=== PATIENT | female | born 1995 | race African-American/Black ===

== ENCOUNTER 2017-05-15 21:53 | Emergency (ER) | payer SELFPAY ==
[~2017-05-15] VITALS: Ht 160 cm; Wt 87.0 kg
[2017-05-15 22:00] VITALS: BP 140/77; PULSE 89; RESP 18; TEMP 99.4; O2SAT 100
[2017-05-15] MEDS ORDERED: VENTAER INH (22:00)
--- NOTE | 2017-05-15 22:38 | PD ---
HPI . Abdominal pain Chief Complaint: GI Complaint Time Seen by Provider: 22:05 Travel History International Travel<30 days: No Contact w/Intl Traveler<30days: No Traveled to known affect area: No History of Present Illness HPI Patient is a 21-year-old female who presents with a 1 day history of abdominal pain. The onset was this morning when she awoke. She locates the pain in a bandlike formation below her bellybutton which does not radiate. She reports the pain occurring episodically every 20 minutes or so and progressively have worsened throughout the day. She describes the pain as a stabbing-like pain. Bending down seems to aggravate the pain while lying back seems to provide some relief. She rates the pain an 8 out of 10 on the pain scale. Patient's menses are regular lasting 4 days and reports that she is currently menstruating. Patient reports vomiting but denies any blood in the vomit described it mainly as watery in nature. She denies any diarrhea, constipation, urinary incontinence, or pain with urination. PFSH Past Medical History Asthma: Yes Diminished Hearing: No Tetanus Vaccination: Unknown Influenza Vaccination: No ?: Not LMP: 05/15/17 Past Surgical History Surgical History: No Previous Surgery Social History Alcohol Use: No Tobacco Use: No Substance Use: No Allergies-Medications (Allergen,Severity, Reaction): Coded Allergies: No Known Allergies (Unverified , 05/15/17) Reported Meds & Prescriptions Reported Meds & Active Scripts Active Reported Ventolin Hfa 18 GM Inh (Albuterol Sulfate) 90 Mcg/Act Aer 2 Puff INH Q4-6H PRN Review of Systems Except as stated in HPI: all other systems reviewed are Neg Gastrointestinal: Positive: Vomiting, Abdominal Pain, No: Hematemesis Physical Exam Narrative GENERAL: Pleasant female in no acute distress SKIN: warm/dry. HEAD: Normocephalic. EYES: Pupils equal and round. No scleral icterus. No injection or drainage. ENT: No nasal bleeding or discharge. Mucous membranes pink and moist. NECK: Trachea midline. Full range of motion without pain.. CARDIOVASCULAR: Regular rate and rhythm. No clicks, rubs, or gallops. RESPIRATORY: No accessory muscle use. Clear to auscultation. Breath sounds equal bilaterally. GASTROINTESTINAL: Abdomen soft. Tenderness elicited in both the lower right and lower left quadrants. Bowel sounds present. Nondistended. MUSCULOSKELETAL: No obvious deformities. NEUROLOGICAL: Awake and alert. No obvious cranial nerve deficits. Motor grossly within normal limits. Normal speech. PSYCHIATRIC: Appropriate mood and affect; insight and judgment normal. Data Data Last Documented VS Vital Signs Date Time Temp Pulse Resp B/P (MAP) Pulse Ox O2 Delivery O2 Flow Rate FiO2 05/15/17 22:00 99.4 89 18 140/77 (98) 100 Orders Orders Ed Urine Pregnancytest Poc (05/15/17 22:42) Acetamin-Hydrocod 325-5 Mg ([place] 5-325 (05/15/17 22:45) MDM Medical Decision Making Medical Screen Exam Complete: Yes Emergency Medical Condition: Yes Differential Diagnosis Differential diagnosis of pelvic pain includes but is not limited to UTI, PID, ectopic , spontaneous AB, constipation, viral illness Narrative Course This patient presents with pelvic pain which is coincident with her menstrual cycle. Her test is negative. Her exam shows mild suprapubic tenderness with no guarding or rebound. She will be discharged home with a prescription for Motrin to take for menstrual cramps. Diagnosis Primary Impression: Dysmenorrhea Patient Instructions: Dysmenorrhea (DC), General Instructions Med/Other Pt SpecificInfo: Prescription(s) given Scripts Ibuprofen (Ibuprofen) 800 Mg Tab 800 MG PO Q8H Y for Pain/Inflammation, #60 TAB 0 Refills Prov: Vicenta Abdalla MD 05/15/17 Disposition: 01 DISCHARGE HOME Condition: Stable Vicenta Abdalla MD May 15, 2017 22:38
[2017-05-15] MEDS ORDERED: ACETAMINOPHEN/HYDROcodone 325 MG/5 MG TAB PO ONE (22:45)
[2017-05-15] MEDS ORDERED: IBUP1TAB7 PO (23:03)
== END 2017-05-15 23:16 | disposition home or self-care (01) ==
LOC: NEPD 21:53
DX: N94.6 Dysmenorrhea, unspecified (principal); J45.909 Unspecified asthma, uncomplicated
CPT/HCPCS: 84703; 99283